=== PATIENT | male | born 1960 | race Caucasian/White ===

== ENCOUNTER 2018-11-03 11:05 | Emergency (ER) | payer MEDICAID ==
[~2018-11-03] VITALS: Ht 172.7 cm; Wt 90.7 kg
[2018-11-03] MEDS ORDERED: METFORMIN HCL500 M1 ORAL (11:19)
[2018-11-03] MEDS ORDERED: GLIPIZIDE5 MG ORAL (11:19)
[2018-11-03 11:23] VITALS: BP 144/94
--- NOTE | 2018-11-03 11:25 | NUR ---
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 noted small contusion with scant amount of bleeding, mild tenderness noted. cms intact.
[2018-11-03] MEDS ORDERED: Tetanus/Diptheria/Pertussis IM ONE (11:45)
[2018-11-03] MEDS ORDERED: HYDROcodone/Acetamin 5/325 tab ORAL ONE (11:45)
[2018-11-03] MEDS ORDERED: NORCO 5-325 TA1 EACH ORAL (12:28)
--- NOTE | 2018-11-03 12:50 | NUR ---
ER DISCHARGE NOTE: VIOLETA Lerner tech applied dressing and splint on the right thumb. Skin pink, reports no numbness. Patient is cleared to be discharged per ERMD, pt is aox4, on room air, with stable vital signs. pt was given dc and prescription instructions, pt was able to verbalize understanding, pt id band and iv site removed without complications. pt is able to ambulate with steady gait. pt took all belongings.
--- NOTE | 2018-11-03 13:59 | Emergency Room Report ---
History of Present Illness General Chief Complaint: Upper Extremity Injury Source: Patient Present Illness HPI Patient presents emergency department today complaining of right thumb injury. Patient states that he has hand got caught in a car door or window and it hurt his right thumb so he is complaining about right thumb pain. There is evidence of bleeding in the area right thumb near the proximal aspect of the nailbed. It appears to be a small abrasion or laceration. No evidence of deep tissue injury. This does not require repair. Patient has pain limited range of motion. He denies any other injuries. This occurred shortly prior to arrival. Patient states that he does not remember his last tetanus shot. No other modifying factors. No other associated signs and symptoms. No other complaints were noted. Allergies: Coded Allergies: SULFA (SULFONAMIDE ANTIBIOTICS) (Verified Allergy, Unknown, 11/03/18) VITAMIN E (D-ALPHA TOCOPHEROL) (Verified Allergy, Unknown, 11/03/18) Patient History Past Medical History: DM Past Surgical History: none Pertinent Family History: none Social History: Denies: smoking, alcohol use, drug use Reviewed Nursing Documentation: PMH: Agreed; PSxH: Agreed Nursing Documentation-PMH Hx Diabetes: Yes Review of Systems All Other Systems: negative except mentioned in HPI Physical Exam Vital Signs Date Time Temp Pulse Resp B/P (MAP) Pulse Ox O2 Delivery O2 Flow Rate FiO2 11/03/18 11:15 98.1 77 16 144/94 (111) 97 Room Air Sp02 EP Interpretation: reviewed, normal General Appearance: normal inspection, well appearing, no apparent distress, alert Head: atraumatic Eyes: bilateral eye normal inspection ENT: hearing grossly normal, normal voice Respiratory: normal inspection, lungs clear, normal breath sounds, no respiratory distress, no retraction, no wheezing Cardiovascular #1: regular rate, rhythm, no edema Musculoskeletal: tender - Right thumb at the area of the abrasion. No evidence of deep tissue injury. No need for laceration repair. Neurologic: normal inspection, alert, responsive, speech normal Psychiatric: normal inspection, judgement/insight normal, mood/affect normal Skin: abrasions - Right thumb Procedures Splinting Splinting : Consent: Verbal Location: Right thumb Pre-Made Type: metal Pre-Proc Neuro Vasc Exam: normal Post-Proc Neuro Vasc Exam: normal Patient Tolerated: Well Complications: None Medical Decision Making Diagnostic Impression: Primary Impression: Contusion Additional Impression: Laceration ER Course Patient presents emergency department today complaint getting his thumb caught in a car door. Differential considerations include fracture dislocation versus strain versus laceration. X-ray appears to be normal. This appears to be a superficial laceration or abrasion. This does not require repair at this time. Recommend good wound care. Patient's thumb was splinted for comfort. He was advised follow-up outpatient because he states that he was having difficulty moving his thumb. There was no evidence of neurologic injury at this time however there could be tendon injury that is undiagnosed therefore I recommend outpatient follow-up. And splinted the thumb. Patient is advised to follow up with primary doctor in 2-3 days and return the emergency room for any worsening symptoms and as needed. Other X-Ray Diagnostic Results Other X-Ray Diagnostic Results : X-Ray ordered: Right thumb finger x-ray # of Views/Limited Vs Complete: 2 View Indication: Pain EP Interpretation: Yes Interpretation: no dislocation, no soft tissue swelling, no fractures Impression: No acute disease Electronically Signed by: Electronically signed by Franklyn Marshall MD Last Vital Signs Date Time Temp Pulse Resp B/P (MAP) Pulse Ox O2 Delivery O2 Flow Rate FiO2 11/03/18 12:50 98.4 73 16 131/91 99 Room Air Status: improved Disposition: HOME, SELF-CARE Condition: Stable Scripts Hydrocodone Bit/Acetaminophen 5-325* (NORCO 5-325*) 1 Each Tablet 1 TAB ORAL Q6H PRN for For Pain, #10 TAB 0 Refills Prov: Franklyn Marshall MD 11/03/18 Referrals: NON PHYSICIAN (PCP) Patient Instructions: Francoise, Ltje-vy-Srok Franklyn Marshall MD Nov 03, 2018 13:59
--- NOTE | 2018-11-03 17:49 | Diagnostic Imaging Report ---
Indication: Pain. Thumb caught in a leftward car window Technique: 3 views of the right thumb Comparison: none Findings: Small corticated ossific density projects at the posterolateral corner of the first distal phalanx, may represent old injury or old ununited ossification center. There are degenerative changes of the first carpometacarpal joint, with degenerative remodeling of the associated bones. There is joint space narrowing of the lateral aspect of the first interphalangeal joint and the first carpophalangeal joint. No acute fractures. No dislocations. Impression: No acute bony trauma Degenerative changes, as described
== END 2018-11-03 12:50 | disposition home or self-care (01) ==
LOC: EMR 12:25
DX: S61.011A Laceration without foreign body of right thumb without damage to nail, initial encounter (principal); W23.0XXA Caught, crushed, jammed, or pinched between moving objects, initial encounter; Y92.810 Car as the place of occurrence of the external cause; Z23 Encounter for immunization; E11.9 Type 2 diabetes mellitus without complications; Z88.2 Allergy status to sulfonamides
CPT/HCPCS: 29130; 90471; 90715; 99283